=== PATIENT | male | born 1975 | race Caucasian/White ===

== ENCOUNTER 2018-03-17 15:10 | Emergency (ER) | payer SELFPAY ==
[~2018-03-17] VITALS: Ht 177.8 cm; Wt 79.4 kg
[2018-03-17 15:10] VITALS: BP_SYST 134
[2018-03-17] MEDS ORDERED: LORazepam 2 MG/ML VIAL (FOR ER USE) IM ONE ×2 (16:15)
[2018-03-17 16:34] VITALS: BP_SYST 134
== END 2018-03-17 16:34 ==
LOC: SED 15:10
DX: R45.1 Restlessness and agitation (principal); R03.0 Elevated blood-pressure reading, without diagnosis of hypertension; F17.210 Nicotine dependence, cigarettes, uncomplicated
CPT/HCPCS: 96372; 99283; J2060